=== PATIENT | male | born 2000 | race Caucasian/White ===

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

== ENCOUNTER 2018-03-16 13:36 | Emergency (ER) | payer SELFPAY ==
[~2018-03-16] VITALS: Ht 177.8 cm; Wt 65.8 kg
[2018-03-16] MEDS ORDERED: ACETAMINOPHEN 325 MG TAB PO ONE (14:15)
[2018-03-16 15:03] VITALS: BP 106/72
[2018-03-16] MEDS ORDERED: MORPHINE SULFATE 4 MG/ML SYR/VIAL IV ONE (15:15)
[2018-03-16] MEDS ORDERED: ONDANSETRON HCL 4 MG/2 ML VIAL IV ONE (15:15)
[2018-03-16] MEDS ORDERED: MORPHINE SULFATE 10 MG/ML INJ 1ML SDV IV ONE (15:30)
== END 2018-03-16 16:28 | disposition home or self-care (01) ==
LOC: ER 13:41
DX: S42.022A Displaced fracture of shaft of left clavicle, initial encounter for closed fracture (principal); W19.XXXA Unspecified fall, initial encounter; Y93.89 Activity, other specified; Y99.8 Other external cause status; Y92.89 Other specified places as the place of occurrence of the external cause
CPT/HCPCS: 73030; 96374; 96375; 99283; J2270; J2405